=== PATIENT | male | born 1980 | race African-American/Black ===

== ENCOUNTER 2016-10-20 17:43 | Inpatient (IN) | payer OTHER ==
[~2016-10-20] VITALS: Ht 175.3 cm; Wt 91.1 kg
[2016-10-20 17:45] VITALS: BP 139/92; TEMP 98.8; O2SAT 96
--- NOTE | 2016-10-20 18:12 | PD ---
HPI Chief Complaint: ENT Complaint Time Seen by Provider: 18:12 Travel History International Travel<30 days: No Contact w/Intl Traveler<30days: No Traveled to known affect area: No History of Present Illness HPI 36-year-old male with no significant medical history presents to emergency department for evaluation of dizziness, blurred vision, and just not feeling right. Patient states that for the last 2 weeks he has been drinking a lot and urinating a lot. He reports having headaches intermittently. He states over last couple days his vision has "not right." He states he feels blurry at times. He denies any other focal deficits or weakness. He has been nauseous without vomiting intermittently. Denies chest pain or Tightness. No difficulty breathing. States it feels like maybe he is good. Denies any other symptoms at this time. She does smoke tobacco cigarettes, approximately a half pack a day. Denies any illicit drug use. No alcohol consumption. No other symptoms to report. PFSH Past Medical History Medical History: Denies Significant Hx Social History Alcohol Use: No Tobacco Use: Yes Substance Use: No Allergies-Medications (Allergen,Severity, Reaction): Coded Allergies: No Known Allergies (Unverified , 10/20/16) Reported Meds & Prescriptions Reported Meds & Active Scripts Active No Active Prescriptions or Reported Medications Review of Systems Except as stated in HPI: all other systems reviewed are Neg Physical Exam Narrative GENERAL: Well-nourished female patient, in no acute distress SKIN: Warm and dry. HEAD: Atraumatic. Normocephalic. EYES: Pupils equal and round. EOMI. No scleral icterus. No injection or drainage. ENT: No nasal bleeding or discharge. Mucous membranes pink and moist. NECK: Trachea midline. No JVD. CARDIOVASCULAR: Regular rate and rhythm. No murmur appreciated. RESPIRATORY: No accessory muscle use. Clear to auscultation. Breath sounds equal bilaterally. GASTROINTESTINAL: Abdomen soft, non-tender, nondistended. Hepatic and splenic margins not palpable. MUSCULOSKELETAL: No obvious deformities. No clubbing. No cyanosis. No edema. NEUROLOGICAL: Awake and alert. No obvious cranial nerve deficits. Motor grossly within normal limits. Normal speech. PSYCHIATRIC: Appropriate mood and affect; insight and judgment normal. Data Data Last Documented VS Vital Signs Date Time Temp Pulse Resp B/P Pulse Ox O2 Delivery O2 Flow Rate FiO2 10/20/16 18:23 87 18 97 Room Air 10/20/16 18:19 99.2 131/82 Orders Iv Access Insert/Monitor (10/20/16 18:10) Complete Blood Count With Diff (10/20/16 18:10) Basic Metabolic Panel (Bmp) (10/20/16 18:10) Urinalysis - C+S If Indicated (10/20/16 18:10) Sodium Chlor 0.9% 1000 Ml Inj (Ns 1000 M (10/20/16 18:15) Electrocardiogram (10/20/16 19:37) Sodium Chlor 0.9% 1000 Ml Inj (Ns 1000 M (10/20/16 19:37) Dext 5%-Nacl 0.9% 1000 Ml Inj (D5w-Ns 10 (10/20/16 19:37) Insulin Human Regular Inj (Novolin R Inj (10/20/16 19:45) Insulin Regular (Iv Infusion) (Novolin R (10/20/16 19:45) Potassium Chlor 40 Meq Premix (Kcl 40 Me (10/20/16 19:45) Potassium Chlor 20 Meq Premix (Kcl 20 Me (10/20/16 19:45) Potassium Chlor 20 Meq Premix (Kcl 20 Me (10/20/16 19:45) Potassium Chlor 20 Meq Premix (Kcl 20 Me (10/20/16 19:45) Potassium Chlor 20 Meq Premix (Kcl 20 Me (10/20/16 19:45) Potassium Chlor 20 Meq Premix (Kcl 20 Me (10/20/16 19:45) Potassium Chlor 20 Meq Premix (Kcl 20 Me (10/20/16 19:45) Sodium Bicarbonate 8.4% Inj (Sodium Bica (10/20/16 19:45) Sodium Bicarbonate 8.4% Inj (Sodium Bica (10/20/16 19:45) Sodium Phosphate Inj (Sodium Phosphate I (10/20/16 19:45) Potassium Chlor 40 Meq Premix (Kcl 40 Me (10/20/16 19:45) Beta Hydroxybutyrate (Acetone) (10/20/16 19:47) Hemoglobin (Hgb) A1c (10/20/16 19:47) Insulin Human Regular Inj (Novolin R Inj (10/20/16 20:00) Sodium Chlor 0.9% 1000 Ml Inj (Ns 1000 M (10/20/16 20:00) Admit Order (Ed Use Only) (10/20/16 19:50) Labs Laboratory Tests Test 10/20/16 18:40 White Blood Count 10.5 TH/MM3 Red Blood Count 5.38 MIL/MM3 Hemoglobin 14.7 GM/DL Hematocrit 44.5 % Mean Corpuscular Volume 82.7 FL Mean Corpuscular Hemoglobin 27.2 PG Mean Corpuscular Hemoglobin 32.9 % Concent Red Cell Distribution Width 13.5 % Platelet Count 232 TH/MM3 Mean Platelet Volume 11.9 FL Neutrophils (%) (Auto) 73.0 % Lymphocytes (%) (Auto) 19.3 % Monocytes (%) (Auto) 6.4 % Eosinophils (%) (Auto) 0.8 % Basophils (%) (Auto) 0.5 % Neutrophils # (Auto) 7.6 TH/MM3 Lymphocytes # (Auto) 2.0 TH/MM3 Monocytes # (Auto) 0.7 TH/MM3 Eosinophils # (Auto) 0.1 TH/MM3 Basophils # (Auto) 0.1 TH/MM3 CBC Comment DIFF FINAL Differential Comment Urine Color COLORLESS Urine Turbidity CLEAR Urine pH 5.0 Urine Specific [place] 1.030 Urine Protein NEG mg/dL Urine Glucose (UA) 1000 mg/dL Urine Ketones 10 mg/dL Urine Occult Blood NEG Urine Nitrite NEG Urine Bilirubin NEG Urine Urobilinogen LESS THAN 2.0 MG/DL Urine Leukocyte Esterase NEG Urine RBC LESS THAN 1 /hpf Urine WBC 1 /hpf Microscopic Urinalysis Comment CULT NOT INDICATED Sodium Level 124 MEQ/L Potassium Level 4.7 MEQ/L Chloride Level 86 MEQ/L Carbon Dioxide Level 26.3 MEQ/L Anion Gap 12 MEQ/L Blood Urea Nitrogen 24 MG/DL Creatinine 1.78 MG/DL Estimat Glomerular Filtration 43 ML/MIN Rate Random Glucose 856 MG/DL Calcium Level 8.7 MG/DL Magnesium Level 2.3 MG/DL Total Bilirubin 0.4 MG/DL Direct Bilirubin 0.1 MG/DL Indirect Bilirubin 0.3 MG/DL Aspartate Amino Transf 33 U/L (AST/SGOT) Alanine Aminotransferase 47 U/L (ALT/SGPT) Alkaline Phosphatase 233 U/L Total Protein 8.0 GM/DL Albumin 3.6 GM/DL MDM Medical Decision Making Medical Screen Exam Complete: Yes Emergency Medical Condition: Yes Medical Record Reviewed: Yes Differential Diagnosis Electrolyte abnormality versus dehydration versus influenza versus viral syndrome Narrative Course 36 year male presents to emergency department for evaluation. Patient appears overall well and without distress. His vital signs are stable. CBC is without acute concern. Urinalysis is with 1000 glucosuria. BMP is with hyponatremia 124. BUN is elevated 24, creatinine is 1.78. Random glucose is critical value of 856. I discussed the patient my attending physician Dr. Jones, she recommends starting patient on DKA protocol. She is ordered 10 units IV insulin. [facility] for [facility]. I spoke with Dr. Orellana. She requests the pt not be on DKA protocol at this time. These orders are cancelled. Pt is admitted inpatient to hospitalist service Diagnosis Primary Impression: Hyperglycemia without ketosis Additional Impression: Hyponatremia Admitting Information Admitting Physician Requests: Admit Scripts No Active Prescriptions or Reported Meds Condition: Stable Liat Lwa Oct 20, 2016 18:12
[2016-10-20] MEDS ORDERED: SODIUM CHLOR 0.9% 1000 ML INJ 1,000 ML IV ONE ×2 (18:15→20:00)
[2016-10-20 18:19] VITALS: BP 131/82; PULSE 86; RESP 18; TEMP 99.2; O2SAT 97
[2016-10-20 19:00] LABS: AUTOMATED NEUTROPHIL # 7.6 TH/MM3 (1.8-7.7); BASOPHIL # 0.1 TH/MM3 (0-0.2); BASOPHIL % 0.5 % (0.0-2.0); EOSINOPHIL # 0.1 TH/MM3 (0-0.4); EOSINOPHIL % 0.8 % (0.0-4.0); HEMATOCRIT 44.5 % (39.0-51.0); HEMO FLAGS DIFF FINAL; LYMPH % 19.3 % (9.0-44.0); MEAN CELL VOLUME 82.7 FL (80.0-100.0); MEAN CORPUSCULAR HEMOGLOBIN 27.2 PG (27.0-34.0); MEAN CORPUSCULAR HGB CONC 32.9 % (32.0-36.0); MONO % 6.4 % (0.0-8.0); PLATELET COUNT 232 TH/MM3 (150-450); RED BLOOD COUNT 5.38 MIL/MM3 (4.50-5.90); RED CELL DISTRIBUTION WIDTH 13.5 % (11.6-17.2); WHITE BLOOD COUNT 10.5 TH/MM3 (4.0-11.0)
[2016-10-20 19:02] LABS: BLOOD, URINE NEG (NEG); GLUCOSE,URINE 1000 mg/dL (NEG); KETONE, URINE 10 mg/dL (NEG); NITRITE,URINE NEG (NEG); URINE COLOR COLORLESS (YELLW/STRAW)
[2016-10-20 19:04] LABS: COMMENT (UR) CULT NOT INDICATED; CULTURE IF INDICATED CULT NOT INDICATED
[2016-10-20 19:35] LABS: BICARBONATE 26.3 MEQ/L (21.0-32.0)
[2016-10-20 19:36] LABS: POTASSIUM 4.7 MEQ/L (3.5-5.1)
[2016-10-20] MEDS ORDERED: DEXT 5%-NACL 0.9% 1000 ML INJ 1,000 ML IV SCH (19:37)
[2016-10-20] MEDS ORDERED: SODIUM CHLOR 0.9% 1000 ML INJ 1,000 ML IV SCH (19:37)
[2016-10-20] MEDS ORDERED: SODIUM PHOSPHATE INJ 15 MMOL in SODIUM CHLORIDE 0.9% INJ 100 ML IV PRN (19:45)
[2016-10-20] MEDS ORDERED: POTASSIUM CHLOR 20 MEQ PREMIX 100 ML IV PRN ×6 (19:45)
[2016-10-20] MEDS ORDERED: POTASSIUM CHLOR 40 MEQ PREMIX 100 ML IV PRN ×2 (19:45)
[2016-10-20] MEDS ORDERED: SODIUM BICARBONATE 8.4% SOLN 50 MEQ/50 ML VIAL IV PRN ×2 (19:45)
[2016-10-20] MEDS ORDERED: INSULIN HUMAN REGULAR 1,000 UNITS/10 ML VIAL IV PUSH ONE (19:45)
[2016-10-20] MEDS ORDERED: INSULIN REGULAR (IV INFUSION) 100 UNITS in SODIUM CHLORIDE 0.9% INJ 99 ML IV SCH (19:45)
--- NOTE | 2016-10-20 19:58 | HHI.HP ---
[facility] Primary [facility] Physician No Primary Care Physician Admission Diagnosis Hyperglycemia; hyponatremia; new onset diabetes Diagnoses: (1) Diabetes mellitus, new onset Diagnosis: Principal (2) Hyponatremia Diagnosis: Principal (3) CORTNEY (acute kidney injury) Diagnosis: Principal (4) Tobacco abuse Diagnosis: Principal Travel History International Travel<30 Days: No Contact w/Intl Traveler <30 Da: No Traveled to Known Affected Are: No History of Present Illness This is a 36-year-old male with no significant PMH who presented to the ER with generalized weakness, polyuria and polydipsia x2 wks. Denies fever, chills, nausea, vomiting or sick contacts. On arrival, BP 139/92, HR 92, O2 sat 96% on RA, Afebrile. CBC unremarkable. Na 124. Creatine 1.78, no previous labs for comparison. BS 856. S/p IVF and 10u Insulin in ER. Pt w/ no previous history of DM. Review of Systems Other ROS: 14 point review of systems otherwise negative. Past Family Social History Past Medical History PMH: None Past Surgical History PAST SURGICAL HISTORY: None Allergies: Coded Allergies: No Known Allergies (Unverified , 10/20/16) Family History PAST FAMILY HISTORY: Reviewed. No h/o DM or CAD Social History PAST SOCIAL HISTORY: Negative for alcohol or drugs. Smokes 1ppd. Physical Exam Vital Signs Vital Signs Date Time Temp Pulse Resp B/P Pulse Ox O2 Delivery O2 Flow Rate FiO2 10/20/16 18:23 87 18 97 Room Air 10/20/16 18:19 99.2 86 18 131/82 97 10/20/16 17:45 98.8 92 17 139/92 96 Physical Exam PE: GENERAL: Middle-aged male in no acute distress. HEENT: PERRLA, EOMI. No scleral icterus or conjunctival pallor. No lid lag or facial droop. CARDIOVASCULAR: Regular rate and rhythm. No obvious murmurs to auscultation. No chest tenderness to palpation. RESPIRATORY: No obvious rhonchi or wheezing. Clear to auscultation. Breath sounds equal bilaterally. GASTROINTESTINAL: Abdomen soft, non-tender, nondistended. BS normal. MUSCULOSKELETAL: Extremities without clubbing, cyanosis, or edema. No obvious deformities. NEUROLOGICAL: Awake, alert and oriented x4. No focal neurologic deficits. Moving both upper and lower extremities spontaneously. Laboratory Laboratory Tests Test 10/20/16 18:40 White Blood Count 10.5 Red Blood Count 5.38 Hemoglobin 14.7 Hematocrit 44.5 Mean Corpuscular Volume 82.7 Mean Corpuscular Hemoglobin 27.2 Mean Corpuscular Hemoglobin 32.9 Concent Red Cell Distribution Width 13.5 Platelet Count 232 Mean Platelet Volume 11.9 Neutrophils (%) (Auto) 73.0 Lymphocytes (%) (Auto) 19.3 Monocytes (%) (Auto) 6.4 Eosinophils (%) (Auto) 0.8 Basophils (%) (Auto) 0.5 Neutrophils # (Auto) 7.6 Lymphocytes # (Auto) 2.0 Monocytes # (Auto) 0.7 Eosinophils # (Auto) 0.1 Basophils # (Auto) 0.1 CBC Comment DIFF FINAL Differential Comment Urine Color COLORLESS Urine Turbidity CLEAR Urine pH 5.0 Urine Specific [place] 1.030 Urine Protein NEG Urine Glucose (UA) 1000 Urine Ketones 10 Urine Occult Blood NEG Urine Nitrite NEG Urine Bilirubin NEG Urine Urobilinogen LESS THAN 2.0 Urine Leukocyte Esterase NEG Urine RBC LESS THAN 1 Urine WBC 1 Microscopic Urinalysis Comment CULT NOT INDICATED Sodium Level 124 Potassium Level 4.7 Chloride Level 86 Carbon Dioxide Level 26.3 Anion Gap 12 Blood Urea Nitrogen 24 Creatinine 1.78 Estimat Glomerular Filtration 43 Rate Random Glucose 856 Calcium Level 8.7 Result Diagram: 10/20/16183910/20/161839 Assessment and Plan Problem List: (1) Diabetes mellitus, new onset ICD Code: E11.9 Status: Acute (2) Hyponatremia ICD Code: E87.1 Status: Acute (3) CORTNEY (acute kidney injury) ICD Code: N17.9 Status: Acute (4) Tobacco abuse ICD Code: Z72.0 Status: Acute Assessment and Plan A/P: 1. DM: New Onset. Polyuria and polydipsia x2 wks. BS 856. No evidence of acidosis. S/p IVF and 10u Insulin in ER. Continue w/ Sliding scale, aggressive IVF, check Hgb A1c, consult Optics Manufacturing Technician, repeat labs in am. 2. Hyponatremia: Na 124. Secondary to hyperglycemia. Recheck labs. 3. CORTNEY: Creatinine 1.78, no previous labs for comparison. U/a negative. Likely secondary to dehydration from hyperglycemia. IVF, repeat labs in am. 4. Tobacco Abuse: Pt counselled. NicoDerm if needed. 5. DVT Prophylaxis: SCD/Teds. 6. Social work for d/c planning as needed. 7. Case discussed w/ ER physician at length. Physician Certification 2 Midnight Certification Type: Admission for Inpatient Services Order for Inpatient Services The services are ordered in accordance with Medicare regulations or non- Medicare payer requirements, as applicable. In the case of services not specified as inpatient-only, they are appropriately provided as inpatient services in accordance with the 2-midnight benchmark. Estimated LOS (days): 2 days is the estimated time the patient will need to remain in the hospital, assuming treatment plan goals are met and no additional complications. Post-Hospital Plan: Home Blessing Orellana MD Oct 20, 2016 19:58
[2016-10-20] MEDS ORDERED: ONDANSETRON HCL 4 MG/2 ML VIAL IVP PRN (20:00)
[2016-10-20] MEDS ORDERED: ACETAMINOPHEN 325 MG TAB PO PRN (20:00)
[2016-10-20] MEDS ORDERED: BISACODYL 10 MG SUPP PR PRN (20:00)
[2016-10-20] MEDS ORDERED: ACETAMINOPHEN/HYDROcodone 325 MG/5 MG TAB PO PRN (20:00)
[2016-10-20] MEDS ORDERED: INSULIN HUMAN REGULAR 1,000 UNITS/10 ML VIAL IVP ONE (20:00)
[2016-10-20] MEDS ORDERED: MORPHINE SULFATE 4 MG/ML INJ IV PRN (20:00)
[2016-10-20] MEDS ORDERED: SODIUM CHLORIDE 0.9% FLUSH 5 ML FLUSH FLUSH PRN (20:00)
[2016-10-20] MEDS: SODIUM CHLOR 0.9% 1000 ML INJ 1,000 ML IV SCH (20:00)
[2016-10-20 20:20] VITALS: BP 137/75; PULSE 70; RESP 18; O2SAT 98
[2016-10-20] MEDS: SODIUM CHLORIDE 0.9% FLUSH 5 ML FLUSH FLUSH SCH (21:00)
[2016-10-20 21:17] LABS: INDIRECT BILIRUBIN 0.3 MG/DL (0.0-0.8); MAGNESIUM 2.3 MG/DL (1.5-2.5); TOTAL BILIRUBIN ADULT 0.4 MG/DL (0.2-1.0)
[2016-10-20 21:25] LABS: BETA-HYDROXYBUTYRATE 1.18 MMOL/L (0.00-0.39)
[2016-10-20] MEDS ORDERED: DEXTROSE 50% IN WATER 50 ML VIAL(D50) IV PUSH PRN (22:00)
[2016-10-20] MEDS ORDERED: GLUCAGON 1 MG/ML VIAL OTHER PRN (22:00)
[2016-10-20 22:30] VITALS: BP 134/98; PULSE 77; RESP 18; TEMP 97.7; O2SAT 99
[2016-10-21] MEDS ORDERED: INSULIN ASPART 1,000 UNITS/10 ML VIAL SQ ONE (02:45)
[2016-10-21] MEDS ORDERED: Vancomycin Consult Pharmacy 1 EA OTHER SCH (02:45)
[2016-10-21] MEDS ORDERED: CEFEPIME INJ 2,000 MG in SODIUM CHLORIDE 0.9% INJ 100 ML IV SCH (02:45)
[2016-10-21] MEDS: SODIUM CHLOR 0.9% 1000 ML INJ 1,000 ML IV SCH (02:54)
[2016-10-21 04:00] VITALS: BP 137/92; PULSE 71; RESP 16; TEMP 97.1; O2SAT 97
[2016-10-21] MEDS: INSULIN ASPART SUPPLEMENTAL SCALE SQ SCH ×4 (06:07→22:17)
[2016-10-21] MEDS ORDERED: INSULIN ASPART SUPPLEMENTAL SCALE SQ SCH (07:00)
[2016-10-21 07:11] LABS: AUTOMATED NEUTROPHIL # 6.9 TH/MM3 (1.8-7.7); BASOPHIL # 0.1 TH/MM3 (0-0.2); BASOPHIL % 0.6 % (0.0-2.0); EOSINOPHIL # 0.1 TH/MM3 (0-0.4); EOSINOPHIL % 1.3 % (0.0-4.0); HEMATOCRIT 36.1 % (39.0-51.0); HEMO FLAGS DIFF FINAL; LYMPH % 23.1 % (9.0-44.0); LYMPHOCYTE # 2.4 TH/MM3 (1.0-4.8); MEAN CELL VOLUME 79.4 FL (80.0-100.0); MEAN CORPUSCULAR HEMOGLOBIN 27.1 PG (27.0-34.0); MEAN CORPUSCULAR HGB CONC 34.1 % (32.0-36.0); MONO % 9.1 % (0.0-8.0); NEUT % 65.9 % (16.0-70.0); PLATELET COUNT 182 TH/MM3 (150-450); RED BLOOD COUNT 4.54 MIL/MM3 (4.50-5.90); RED CELL DISTRIBUTION WIDTH 13.2 % (11.6-17.2); WHITE BLOOD COUNT 10.4 TH/MM3 (4.0-11.0)
[2016-10-21 07:36] LABS: ALKALINE PHOSPHATASE 170 U/L (45-117); ALT (GPT) 39 U/L (12-78); ANION GAP 9 MEQ/L (5-15); AST (GOT) 25 U/L (15-37); BLOOD UREA NITROGEN 13 MG/DL (7-18); CHLORIDE 107 MEQ/L (98-107); GLOMERULAR FILTRATION RATE 98 ML/MIN (>89); POTASSIUM 3.6 MEQ/L (3.5-5.1); SODIUM (NA) 141 MEQ/L (136-145); TOTAL BILIRUBIN ADULT 0.3 MG/DL (0.2-1.0)
[2016-10-21 08:00] VITALS: BP 132/80; PULSE 81; RESP 16; TEMP 98.1; O2SAT 98
[2016-10-21] MEDS: SODIUM CHLORIDE 0.9% FLUSH 5 ML FLUSH FLUSH SCH ×2 (08:27→22:17)
--- NOTE | 2016-10-21 10:08 | HHI.PR ---
Subjective Remarks Patient seen in follow up for new onset diabetes, hyponatremia and CORTNEY Patient reports that he is feeling much better except for little drowsy. He tolerated breakfast this morning. Objective Vitals Vital Signs Date Time Temp Pulse Resp B/P Pulse Ox O2 Delivery O2 Flow Rate FiO2 10/21/16 08:00 98.1 81 16 132/80 98 10/21/16 04:00 97.1 71 16 137/92 97 10/20/16 22:30 97.7 77 18 134/98 99 10/20/16 20:20 70 18 137/75 98 Room Air 10/20/16 18:23 87 18 97 Room Air 10/20/16 18:19 99.2 86 18 131/82 97 10/20/16 17:45 98.8 92 17 139/92 96 I/O 10/20/16 10/20/16 10/20/16 10/21/16 10/21/16 10/21/16 07:00 15:00 23:00 07:00 15:00 23:00 Intake Total 960 ml Balance 960 ml Intake Oral 960 ml # Voids 1 3 Result Diagram: 10/21/16 0603 10/21/16 0603 Objective Remarks GENERAL: This is a well-nourished, well-developed patient, in no apparent distress. CARDIOVASCULAR: Normal rate and regular rhythm without murmurs, gallops, or rubs. RESPIRATORY: Good respiratory efforts. Breath sounds equal and clear to auscultation bilaterally. GASTROINTESTINAL: Abdomen soft, non-tender, non-distended. Normal active bowel sounds MUSCULOSKELETAL: Extremities without cyanosis, or edema. NEURO: Alert & Oriented x4 to person, place, time, situation. Moves all ext x4 PSYCH: Appropriate mood and affect. A/P Problem List: (1) Diabetes mellitus, new onset ICD Code: E11.9 Status: Acute (2) Hyponatremia ICD Code: E87.1 Status: Acute (3) CORTNEY (acute kidney injury) ICD Code: N17.9 Status: Acute (4) Tobacco abuse ICD Code: Z72.0 Status: Acute Assessment and Plan 36-year-old male with new onset diabetes admitted with marked hyperglycemia. DM: New Onset. Polyuria and polydipsia x2 wks. BS 856 on admission. No evidence of acidosis. check Hgb A1c, consult Ball Shagger - Add Levemir 10 units daily at bedtime - Continue w/ Sliding scale and monitor total insulin requirement. CORTNEY: Creatinine 1.78 on admission, no previous labs for comparison. U/a negative. Likely secondary to dehydration from hyperglycemia. Resolved with IVF.DC IVF Hyponatremia: Na 124 on admission. Secondary to hyperglycemia. Resolved with IVF Tobacco Abuse: Pt counselled. DVT Prophylaxis: SCD/Teds. Discharge Planning Probable DC tomorrow. Edis Hutchins MD Oct 21, 2016 10:08
[2016-10-21 12:00] VITALS: BP 151/83; PULSE 77; RESP 16; TEMP 98.1; O2SAT 99
[2016-10-21] MEDS ORDERED: CAFFEINE PO PRN (14:00)
[2016-10-21] MEDS ORDERED: ACETAMINOPHEN PO PRN (14:00)
[2016-10-21] MEDS: ACETAMIN 325 MG/BUTALBITAL 50 MG/CAFFEINE 40 MG TAB PO PRN (14:50)
[2016-10-21 16:00] VITALS: BP 142/81; PULSE 72; RESP 16; TEMP 97.8; O2SAT 98
[2016-10-21 16:40] LABS: HEMOGLOBIN A1a 1.7 %; HEMOGLOBIN A1b 1.6 %; HEMOGLOBIN Ao 66.7 %; HEMOGLOBIN F 3.1 %; HEMOGLOBIN LA1C 5.3 %; HEMOGLOBIN P3 7.9 %
--- NOTE | 2016-10-21 19:29 | EKG ---
Date Performed: 10/20/2016 Time Performed: 21:25:06 PTAGE: 36 years EKG: Sinus rhythm NONSPECIFIC ST & T-WAVE ABNORMALITY BORDERLINE ECG NO PREVIOUS TRACING DOCTOR: Jimmy Renteria Interpretating Date/Time 10/21/2016 19:25:51
[2016-10-21 20:00] VITALS: BP 137/79; PULSE 79; RESP 18; TEMP 97.3; O2SAT 98
[2016-10-21] MEDS: INSULIN DETEMIR 100 UNITS/ML VIAL SQ SCH (22:17)
[2016-10-22] VITALS: BP 146/88; PULSE 75; RESP 16; TEMP 97.6; O2SAT 98
[2016-10-22 04:00] VITALS: BP 149/99; PULSE 82; RESP 18; TEMP 96.2; O2SAT 99
[2016-10-22] MEDS: INSULIN ASPART SUPPLEMENTAL SCALE SQ SCH ×4 (06:12→21:27)
[2016-10-22 07:31] LABS: POTASSIUM 3.4 MEQ/L (3.5-5.1)
[2016-10-22 08:00] VITALS: BP 129/84; PULSE 79; RESP 16; TEMP 98; O2SAT 100
[2016-10-22] MEDS: ACETAMIN 325 MG/BUTALBITAL 50 MG/CAFFEINE 40 MG TAB PO PRN (08:02)
[2016-10-22] MEDS: SODIUM CHLORIDE 0.9% FLUSH 5 ML FLUSH FLUSH SCH ×2 (08:02→21:27)
[2016-10-22] MEDS ORDERED: INSU1MIS15 (11:10)
[2016-10-22] MEDS ORDERED: LEVEMIR SQ (11:10)
[2016-10-22] MEDS ORDERED: METF850T PO (11:10)
[2016-10-22] MEDS ORDERED: LANCETS1 MI1 (11:10)
[2016-10-22] MEDS ORDERED: GLUCKIT15 (11:10)
[2016-10-22] MEDS ORDERED: NOVORP2 SQ (11:10)
--- NOTE | 2016-10-22 11:13 | HHI.DS ---
Discharge Summary Admission Date Oct 20, 2016 at 19:52 Discharge Date: Oct 22, 2016 Admitting Diagnosis Hyperglycemia; hyponatremia; new onset diabetes (1) Diabetes mellitus, new onset ICD Code: E11.9 (2) Hyponatremia ICD Code: E87.1 (3) CORTNEY (acute kidney injury) ICD Code: N17.9 (4) Tobacco abuse ICD Code: Z72.0 Procedures None Brief History - From Admission This is a 36-year-old male with no significant PMH who presented to the ER with generalized weakness, polyuria and polydipsia x2 wks. Denies fever, chills, nausea, vomiting or sick contacts. On arrival, BP 139/92, HR 92, O2 sat 96% on RA, Afebrile. CBC unremarkable. Na 124. Creatine 1.78, no previous labs for comparison. BS 856. S/p IVF and 10u Insulin in ER. Pt w/ no previous history of DM. CBC/BMP: 10/21/16 0603 10/22/16 0530 Significant Findings Laboratory Tests Test 10/20/16 10/20/16 10/21/16 10/22/16 18:40 20:10 06:03 05:30 Mean Platelet Volume 11.9 FL 11.3 FL (7.0-11.0) (7.0-11.0) Neutrophils (%) (Auto) 73.0 % (16.0-70.0) Urine Glucose (UA) 1000 mg/dL (NEG) Urine Ketones 10 mg/dL (NEG) Sodium Level 124 MEQ/L (136-145) Chloride Level 86 MEQ/L (98-107) Blood Urea Nitrogen 24 MG/DL (7-18) Creatinine 1.78 MG/DL (0.60-1.30) Estimat Glomerular Filtration 43 ML/MIN (>89) Rate Random Glucose 856 MG/DL 265 MG/DL 209 MG/DL (74-106) (74-106) (74-106) Alkaline Phosphatase 233 U/L 170 U/L (45-117) (45-117) Hemoglobin A1c 13.7 % (4.3-6.0) B-Hydroxybutyrate 1.18 MMOL/L (0.00-0.39) Hemoglobin 12.3 GM/DL (13.0-17.0) Hematocrit 36.1 % (39.0-51.0) Mean Corpuscular Volume 79.4 FL (80.0-100.0) Monocytes (%) (Auto) 9.1 % (0.0-8.0) Calcium Level 8.0 MG/DL 8.1 MG/DL (8.5-10.1) (8.5-10.1) Total Protein 6.2 GM/DL (6.4-8.2) Albumin 2.8 GM/DL (3.4-5.0) Potassium Level 3.4 MEQ/L (3.5-5.1) PE at Discharge GENERAL: This is a well-nourished, well-developed patient, in no apparent distress. CARDIOVASCULAR: Normal rate and regular rhythm without murmurs, gallops, or rubs. RESPIRATORY: Good respiratory efforts. Breath sounds equal and clear to auscultation bilaterally. GASTROINTESTINAL: Abdomen soft, non-tender, non-distended. Normal active bowel sounds MUSCULOSKELETAL: Extremities without cyanosis, or edema. NEURO: Alert & Oriented x4 to person, place, time, situation. Moves all ext x4 PSYCH: Appropriate mood and affect. Pt update on day of discharge Patient reports that he is feeling much better. We discussed discharge planning at length and the need for follow-up. He was counseled extensively on management of his diabetes. Hospital Course 36-year-old male with new onset diabetes admitted with marked hyperglycemia. Evaluation and treatment course detailed below: DM: New Onset. Polyuria and polydipsia x2 wks. BS 856 on admission. No evidence of acidosis. Hemoglobin A1c of 13. The patient was treated with IV insulin with improvement in his blood glucose. Based on these requirement in the hospital, he is discharged on Levemir 12 units twice a day and a sliding scale. He was seen by the simulation educator. The patient was counseled on the need to follow up outpatient with her primary care physician. He is advised to keep a log of his blood sugar for his follow-up appointment. The patient was extensively counseled on the day of discharge regarding diabetes management. CORTNEY: Creatinine 1.78 on admission, no previous labs for comparison. U/a negative. Likely secondary to dehydration from hyperglycemia. Resolved with IVF.DC IVF Hyponatremia: Na 124 on admission. Secondary to hyperglycemia. Resolved with IVF Tobacco Abuse: Pt counselled. Pt Condition on Discharge: Good Discharge Disposition: Discharge Home Discharge Time: <= 30 minutes Discharge Instructions DIET: Follow Instructions for: Diabetic Diet Activities you can perform: Regular-No Restrictions Follow up Referrals: PCP Follow-up - 3-5 Days New Medications: Blood Glucose Monitoring W/Device (Glucocom Blood Glucose Mo W/Device) 1 Kit Kit 1 KIT .ROUTE DIRECTED Check blood glucose AC/HS Blood Sugar Management #1 KIT Insulin Detemir Inj (Levemir Inj) 1,000 unit/ 10 ML Vial 12 UNITS SQ BID Do not mix with any other Insulin. Blood Sugar Management #1 Ref 0 VIAL Insulin Human Regular Inj (Novolin R Inj) 1,000 Unit/10 Ml Vial 1-9 UNITS SQ ACHS If sugars less than 70,(0) units; sugars 150-199,(1)unit; sugars 200-249,(3)units; sugars 250-299,(5) units;sugars 300-349,(7)units; sugars greater than 349,(9)units Blood Sugar Management #10 Ref 0 ML Insulin Syringe/U-100/31G X 5/16" 1 ml (Insulin Syringe/U-100/31G X 5/16" 1 ml) 1 Mis Mis 1 EA .ROUTE DIRECTED Blood Sugar Management #1 Ref 0 BOX Lancets (Lancets) 1 Mis Mis 1 EA .ROUTE DIRECTED Blood Sugar Management #1 Ref 0 BOX Metformin (Metformin) 850 Mg Tab 850 MG PO BIDPC With meals Blood Sugar Management #60 Ref 0 TAB Edis Hutchins MD Oct 22, 2016 11:13
--- NOTE | 2016-10-22 11:35 | PD.PN.STU ---
Subjective Remarks 36 yo M w/ new onset diabetes. He reports his vision is improving by the minute , less blurry, is able to see TV now. He has some residual headache, and is eager to go home. Objective Vitals Vital Signs Date Time Temp Pulse Resp B/P Pulse Ox O2 Delivery O2 Flow Rate FiO2 10/22/16 04:00 96.2 82 18 149/99 99 10/22/16 00:00 97.6 75 16 146/88 98 10/21/16 20:00 97.3 79 18 137/79 98 10/21/16 16:00 97.8 72 16 142/81 98 10/21/16 12:00 98.1 77 16 151/83 99 I/O 10/21/16 10/21/16 10/21/16 10/22/16 10/22/16 10/22/16 07:00 15:00 23:00 07:00 15:00 23:00 Intake Total 960 ml 1393 ml 480 ml 240 ml Balance 960 ml 1393 ml 480 ml 240 ml Intake Oral 960 ml 560 ml 480 ml 240 ml IV Total 833 ml # Voids 3 3 2 1 Result Diagram: 10/21/16 0603 10/22/16 0530 Other Results Laboratory Tests Test 10/20/16 10/20/16 10/21/16 10/22/16 18:40 20:10 06:03 05:30 White Blood Count 10.5 TH/MM3 10.4 TH/MM3 Red Blood Count 5.38 MIL/MM3 4.54 MIL/MM3 Hemoglobin 14.7 GM/DL 12.3 GM/DL Hematocrit 44.5 % 36.1 % Mean Corpuscular Volume 82.7 FL 79.4 FL Mean Corpuscular Hemoglobin 27.2 PG 27.1 PG Mean Corpuscular Hemoglobin 32.9 % 34.1 % Concent Red Cell Distribution Width 13.5 % 13.2 % Platelet Count 232 TH/MM3 182 TH/MM3 Mean Platelet Volume 11.9 FL 11.3 FL Neutrophils (%) (Auto) 73.0 % 65.9 % Lymphocytes (%) (Auto) 19.3 % 23.1 % Monocytes (%) (Auto) 6.4 % 9.1 % Eosinophils (%) (Auto) 0.8 % 1.3 % Basophils (%) (Auto) 0.5 % 0.6 % Neutrophils # (Auto) 7.6 TH/MM3 6.9 TH/MM3 Lymphocytes # (Auto) 2.0 TH/MM3 2.4 TH/MM3 Monocytes # (Auto) 0.7 TH/MM3 0.9 TH/MM3 Eosinophils # (Auto) 0.1 TH/MM3 0.1 TH/MM3 Basophils # (Auto) 0.1 TH/MM3 0.1 TH/MM3 CBC Comment DIFF FINAL DIFF FINAL Differential Comment Urine Color COLORLESS Urine Turbidity CLEAR Urine pH 5.0 Urine Specific [place] 1.030 Urine Protein NEG mg/dL Urine Glucose (UA) 1000 mg/dL Urine Ketones 10 mg/dL Urine Occult Blood NEG Urine Nitrite NEG Urine Bilirubin NEG Urine Urobilinogen LESS THAN 2.0 MG/DL Urine Leukocyte Esterase NEG Urine RBC LESS THAN 1 /hpf Urine WBC 1 /hpf Microscopic Urinalysis Comment CULT NOT INDICATED Sodium Level 124 MEQ/L 141 MEQ/L 141 MEQ/L Potassium Level 4.7 MEQ/L 3.6 MEQ/L 3.4 MEQ/L Chloride Level 86 MEQ/L 107 MEQ/L 104 MEQ/L Carbon Dioxide Level 26.3 MEQ/L 25.0 MEQ/L 27.0 MEQ/L Anion Gap 12 MEQ/L 9 MEQ/L 10 MEQ/L Blood Urea Nitrogen 24 MG/DL 13 MG/DL 8 MG/DL Creatinine 1.78 MG/DL 1.04 MG/DL 0.91 MG/DL Estimat Glomerular Filtration 43 ML/MIN 98 ML/MIN 114 ML/MIN Rate Random Glucose 856 MG/DL 265 MG/DL 209 MG/DL Calcium Level 8.7 MG/DL 8.0 MG/DL 8.1 MG/DL Magnesium Level 2.3 MG/DL Total Bilirubin 0.4 MG/DL 0.3 MG/DL Direct Bilirubin 0.1 MG/DL Indirect Bilirubin 0.3 MG/DL Aspartate Amino Transf 33 U/L 25 U/L (AST/SGOT) Alanine Aminotransferase 47 U/L 39 U/L (ALT/SGPT) Alkaline Phosphatase 233 U/L 170 U/L Total Protein 8.0 GM/DL 6.2 GM/DL Albumin 3.6 GM/DL 2.8 GM/DL Hemoglobin A1c 13.7 % B-Hydroxybutyrate 1.18 MMOL/L Objective Remarks GENERAL: Sitting upright in bed, comfortable, conversant SKIN: Warm and dry. HEAD: Normocephalic. EYES: No scleral icterus. No injection or drainage. CARDIOVASCULAR: Regular rate and rhythm without murmurs, gallops, or rubs. RESPIRATORY: Breath sounds equal bilaterally. No accessory muscle use. GASTROINTESTINAL: Abdomen soft, non-tender, nondistended. MUSCULOSKELETAL: No cyanosis, or edema. BACK: Nontender without obvious deformity. Medications and IVs Administered Medications Medications (Trade) Dose Ordered Sig/Hayley Route PRN Reason Start Time Stop Time Status Last Admin Dose Admin IV Flush (NS Flush) 2 ml BID FLUSH 10/20/16 21:00 10/22/16 08:02 Acetaminophen/ Hydrocodone Bitart ([place] 5-325 Mg) 1 tab Q4H PRN PO PAIN SCALE 3 TO 5 10/20/16 20:00 10/21/16 08:21 Insulin Detemir (Levemir Inj) 10 units HS SQ 10/21/16 21:00 10/21/16 22:17 Acetaminophen/ Butalbital/ Caffeine (Fioricet 325-50-40) 1 tab Q6H PRN PO HEADACHE 10/21/16 14:30 10/22/16 08:02 A/P Assessment and Plan 36 yo M w/new onset diabetes - Diabetes: new onset - Found to have BS of 856 in ED, HbA1C 13.7% - Has required 32 units of insulin in last 24h - Ready to go home, needs diabetic education and PCP to follow closely on outpatient setting - Dehydration/CORTNEY: Resolved - Initial Cr 1.78 now 0.91 - Hyponatremia: Resolved - Resolved with IVF resuscitation Sima Griffiths M3 Oct 22, 2016 11:34
[2016-10-22 12:45] VITALS: BP 146/85; PULSE 72; RESP 16; TEMP 98.1; O2SAT 100
[2016-10-22 16:00] VITALS: BP 131/83; PULSE 67; RESP 16; TEMP 97.5; O2SAT 100
[2016-10-22] MEDS ORDERED: NOVO7030P2 SQ (16:34)
[2016-10-22 20:00] VITALS: BP 142/85; PULSE 64; RESP 18; TEMP 98.6; O2SAT 98
[2016-10-22] MEDS: INSULIN DETEMIR 100 UNITS/ML VIAL SQ SCH (21:07)
[2016-10-23] VITALS: BP 132/80; PULSE 73; RESP 18; TEMP 97.7; O2SAT 98
[2016-10-23] MEDS: ACETAMIN 325 MG/BUTALBITAL 50 MG/CAFFEINE 40 MG TAB PO PRN (02:05)
[2016-10-23 04:00] VITALS: BP 139/72; PULSE 72; RESP 18; TEMP 97.1; O2SAT 65
[2016-10-23] MEDS: INSULIN ASPART SUPPLEMENTAL SCALE SQ SCH ×3 (04:57→17:32)
--- NOTE | 2016-10-23 08:48 | HHI.PR ---
Subjective Remarks Patient DC yesterday but could not go because outpatient insulin and supplies not covered by his insurance and his Blood glucose as high as 400. Patient has no new complaints. Would like to go home. Objective Vitals Vital Signs Date Time Temp Pulse Resp B/P Pulse Ox O2 Delivery O2 Flow Rate FiO2 10/23/16 04:00 97.1 72 18 139/72 65 10/23/16 00:00 97.7 73 18 132/80 98 10/22/16 20:00 98.6 64 18 142/85 98 10/22/16 16:00 97.5 67 16 131/83 100 10/22/16 12:45 98.1 72 16 146/85 100 I/O 10/22/16 10/22/16 10/22/16 10/23/16 10/23/16 10/23/16 07:00 15:00 23:00 07:00 15:00 23:00 Intake Total 240 ml 680 ml 600 ml 480 ml Balance 240 ml 680 ml 600 ml 480 ml Intake Oral 240 ml 680 ml 600 ml 480 ml # Voids 1 3 2 1 Result Diagram: 10/21/16 0603 10/22/16 0530 Objective Remarks GENERAL: This is a well-nourished, well-developed patient, in no apparent distress. CARDIOVASCULAR: Normal rate and regular rhythm without murmurs, gallops, or rubs. RESPIRATORY: Good respiratory efforts. Breath sounds equal and clear to auscultation bilaterally. GASTROINTESTINAL: Abdomen soft, non-tender, non-distended. Normal active bowel sounds MUSCULOSKELETAL: Extremities without cyanosis, or edema. NEURO: Alert & Oriented x4 to person, place, time, situation. Moves all ext x4 PSYCH: Appropriate mood and affect. Procedures None A/P Problem List: (1) Diabetes mellitus, new onset ICD Code: E11.9 Status: Acute (2) Hyponatremia ICD Code: E87.1 Status: Acute (3) CORTNEY (acute kidney injury) ICD Code: N17.9 Status: Acute (4) Tobacco abuse ICD Code: Z72.0 Status: Acute Assessment and Plan 36-year-old male with new onset diabetes admitted with marked hyperglycemia. DM: New Onset. Polyuria and polydipsia x2 wks. BS 856 on admission. No evidence of acidosis. check Hgb A1c, consult Regional Tele[employer] Specialist - Change Levemir to 15 units BID. - Continue w/ Sliding scale. CORTNEY: Creatinine 1.78 on admission, no previous labs for comparison. U/a negative. Likely secondary to dehydration from hyperglycemia. Resolved with IVF.DC IVF Hyponatremia: Na 124 on admission. Secondary to hyperglycemia. Resolved with IVF Tobacco Abuse: Pt counselled. DVT Prophylaxis: SCD/Teds. Discharge Planning Case management following. DC once arrangements for outpatient meds are made. Edis Hutchins MD Oct 23, 2016 08:48
[2016-10-23] MEDS ORDERED: INSULIN DETEMIR 100 UNITS/ML VIAL SQ SCH (09:00)
[2016-10-23] MEDS: SODIUM CHLORIDE 0.9% FLUSH 5 ML FLUSH FLUSH SCH (10:07)
[2016-10-23 11:50] VITALS: BP 129/88; PULSE 74; RESP 20; TEMP 98.2; O2SAT 97
[2016-10-23 15:00] VITALS: BP 137/95; PULSE 78; RESP 20; TEMP 97.6; O2SAT 99
== END 2016-10-23 18:05 | disposition home or self-care (01) | DRG 638 ==
LOC: NEPC 17:43 → NEDA 19:52 → HOCA 22:24
PROVIDERS: ADMIT Hospitalist; ATTEND Hospitalist
DX: E11.65 Type 2 diabetes mellitus with hyperglycemia (principal); N17.9 Acute kidney failure, unspecified; E87.1 Hypo-osmolality and hyponatremia; F17.200 Nicotine dependence, unspecified, uncomplicated; E86.0 Dehydration
CPT/HCPCS: 80048; 80053; 80076; 81001; 82010; 82948; 83036; 83735; 85025; 93005; 96360; J1815; J7030

== ENCOUNTER 2016-11-01 11:25 | Emergency (ER) | payer OTHER ==
[~2016-11-01] VITALS: Ht 175.3 cm; Wt 90.0 kg
[~2016-11-01 11:25] MED LIST: GLUCKIT15; INSU1MIS15; LANCETS1 MI1; METF850T PO; NOVO7030P2 SQ; NOVORP2 SQ
[2016-11-01 11:27] VITALS: BP 162/98; PULSE 92; RESP 15; TEMP 98.2; O2SAT 98
--- NOTE | 2016-11-01 12:09 | PD ---
HPI Chief Complaint: Eye Problems/Injury Time Seen by Provider: 12:02 Travel History International Travel<30 days: No Contact w/Intl Traveler<30days: No Traveled to known affect area: No History of Present Illness HPI 36-year-old male presents to the emergency department for evaluation of blurry vision. Patient was seen on October 20, 2016 for blurry vision and not feeling right. He was found to have elevated blood glucose of 856 with a sodium of 124. However, he was not in DKA. He was discharged with a prescription for metformin and 70/30 insulin. He states that he has taken his as prescribed. He checked his blood sugar before coming to the hospital was 117. He states his blurry vision had improved upon discharge from the hospital. However, on Friday, he states his blurry vision worsened. Patient states it is in his bilateral eyes. He denies any pain. No trauma to the eyes. He denies any black curtains or seeing spots. He has no other medical problems and takes no other medications. He states other blurry vision, he feels fine. PFSH Past Medical History Cardiovascular Problems: No Diabetes: Yes (new onset DM ) Endocrine: Yes Genitourinary: No Immune Disorder: No Musculoskeletal: No Neurologic: No Psychiatric: No Reproductive: No Respiratory: No Social History Alcohol Use: No Tobacco Use: Yes Substance Use: No Allergies-Medications (Allergen,Severity, Reaction): Coded Allergies: No Known Allergies (Unverified , 11/01/16) Reported Meds & Prescriptions Reported Meds & Active Scripts Active Novolin 70-30 Inj (Insulin Human Isoph/Insulin Regular) 1,000 Unit/10 Ml Vial 12 Units SQ BID Lancets 1 Mis Mis 1 Ea .ROUTE DIRECTED Insulin Syringe/U-100/31G X 5/16" 1 ml 1 Mis Mis 1 Ea .ROUTE DIRECTED Glucocom Blood Glucose Mo W/Device (Device) 1 Kit Kit 1 Kit .ROUTE DIRECTED Check blood glucose AC/HS Novolin R Inj (Insulin Human Regular) 1,000 Unit/10 Ml Vial 1-9 Units SQ ACHS If sugars less than 70,(0) units; sugars 150-199,(1)unit; sugars 200-249,(3)units; sugars 250-299,(5) units;sugars 300-349,(7)units; sugars greater than 349,(9)units Metformin (Metformin HCl) 850 Mg Tab 850 Mg PO BIDPC With meals Review of Systems Except as stated in HPI: all other systems reviewed are Neg Physical Exam Narrative GENERAL: Well-developed well-nourished male patient, ambulatory. Afebrile. SKIN: Warm and dry. HEAD: Normocephalic. Atraumatic. EYES: No scleral icterus. No injection or drainage. PERRLA. EOM intact. No photophobia. NECK: Supple, trachea midline. No JVD or lymphadenopathy. CARDIOVASCULAR: Regular rate and rhythm without murmurs, gallops, or rubs. RESPIRATORY: Breath sounds equal bilaterally. No accessory muscle use. Lungs sounds are clear to auscultation. GASTROINTESTINAL: Abdomen soft, non-tender, nondistended. MUSCULOSKELETAL: No cyanosis, or edema. BACK: Nontender without obvious deformity. No CVA tenderness. Data Data Last Documented VS Vital Signs Date Time Temp Pulse Resp B/P Pulse Ox O2 Delivery O2 Flow Rate FiO2 11/01/16 12:13 89 18 11/01/16 11:27 98.2 162/98 98 Orders Blood Glucose (11/01/16 11:56) [facility] Medical Decision Making Medical Screen Exam Complete: Yes Emergency Medical Condition: Yes Medical Record Reviewed: Yes Differential Diagnosis Diabetic retinopathy versus hyperglycemia versus other Narrative Course 36 year old male presents to the emergency department for evaluation of blurry vision. He was recently diagnosed with type 2 diabetes. He denies any other complaints other than blurry vision bilaterally. Visual acuity is 20/70 bilaterally. Blood glucose is 133. Patient is well physical exam. He denies any other symptoms or complaints at this time. Symptoms and physical are consistent with diabetic retinopathy. I discussed the case with my attending physician, Dr. Michael, who agrees with my findings. I instructed him to follow- up with an beauty advisor. He verbalizes understanding and agreement. He is to return for any acute worsening of symptoms. Diagnosis Primary Impression: Diabetic retinopathy associated with type 2 diabetes mellitus Qualified Code: E11.319 - Diabetic retinopathy of both eyes associated with type 2 diabetes mellitus, macular edema presence unspecified, unspecified retinopathy severity Referrals: Cristina Monroy MD call for appointment Patient Instructions: Diabetic Retinopathy (ED), General Instructions Additional Instructions: Follow-up with an beauty advisor. Return to the emergency department for any acute worsening of symptoms. Med/Other Pt SpecificInfo: No Change to Meds Disposition: 01 DISCHARGE HOME Condition: Stable Norma Villafuerte Nov 01, 2016 12:09
--- NOTE | 2016-11-01 13:21 | PD ---
Physical Exam Date Seen by Provider: Nov 01, 2016 Narrative This is a newly diagnosed diabetic who presents with blurred vision Data Data Last Documented VS Vital Signs Date Time Temp Pulse Resp B/P Pulse Ox O2 Delivery O2 Flow Rate FiO2 11/01/16 12:13 89 18 11/01/16 11:27 98.2 162/98 98 Orders Blood Glucose (11/01/16 11:56) MDM Supervised Visit with EMMY: Yes Narrative Course I, Dr. Michael, have reviewed the advance practice practitioner's documentation and am in agreement, met with the patient face to face, made the diagnosis, and the medical decision making was done by me. *My assessment and Findings: I agree with the nurse practitioners evaluation and treatment of the patient. Treatment plan was discussed with the CABLE OPERATOR. Diagnosis Primary Impression: Diabetic retinopathy associated with type 2 diabetes mellitus Qualified Code: E11.319 - Diabetic retinopathy of both eyes associated with type 2 diabetes mellitus, macular edema presence unspecified, unspecified retinopathy severity Referrals: Cristina Monroy MD call for appointment Patient Instructions: General Instructions, Diabetic Retinopathy (ED) Departure Forms: Tests/Procedures Additional Instruction: Follow-up with an toxics program officer. Return to the emergency department for any acute worsening of symptoms. Disposition: 01 DISCHARGE HOME Condition: Stable Vinita Michael MD Nov 01, 2016 13:21
== END 2016-11-01 13:21 | disposition home or self-care (01) ==
LOC: NEPA 11:25
DX: E11.319 Type 2 diabetes mellitus with unspecified diabetic retinopathy without macular edema (principal); R73.9 Hyperglycemia, unspecified; Z72.0 Tobacco use
CPT/HCPCS: 99284

== ENCOUNTER 2017-04-04 09:34 | Emergency (ER) | payer OTHER ==
[~2017-04-04] VITALS: Ht 180.3 cm; Wt 90.0 kg
[2017-04-04 09:36] VITALS: BP 175/114; PULSE 71; RESP 16; TEMP 97.9; O2SAT 94
--- NOTE | 2017-04-04 09:46 | PD ---
HPI Chief Complaint: Headache Time Seen by Provider: 09:46 Travel History International Travel<30 days: No Contact w/Intl Traveler<30days: No Traveled to known affect area: No History of Present Illness HPI 36-year-old Afro-[place] male presents to the emergency Department with history of almost daily headaches for the past year. Patient states this morning he woke up with the worst headache of his life. He states his pain is 10 over 10. He states normally takes Excedrin with relief. Patient denies significant specific neurological deficits at this time. He states his pain is global in its distribution in the head. He denies recent fever, chills, nausea , vomiting, or sinus congestion or dental pain. Patient states he took 2 Excedrin this morning which helped very little. He denies photophobia. Patient states he does smoke cigarettes and had a little bit to drink last night but nothing excessive. He denies other drug use. He has no known drug allergies. PFSH Past Medical History Cardiovascular Problems: No Diabetes: Yes (new onset DM ) Endocrine: Yes Gastrointestinal Disorders: No Genitourinary: No Immune Disorder: No Musculoskeletal: No Neurologic: No Psychiatric: No Reproductive: No Respiratory: No Past Surgical History Other Surgery: No Social History Alcohol Use: Yes (occasion) Tobacco Use: Yes (0.5ppd) Substance Use: No Allergies-Medications (Allergen,Severity, Reaction): Coded Allergies: No Known Allergies (Unverified , 11/01/16) Reported Meds & Prescriptions Reported Meds & Active Scripts Active No Active Prescriptions or Reported Medications Review of Systems Except as stated in HPI: all other systems reviewed are Neg General / Constitutional: No: Fever, Chills Eyes: No: Diploplia, Blurred Vision, Photophobia, Drainage, Redness, Pain, Tearing, Blind Spots, Visual changes, Blindness HENT: Positive: Headaches, No: Vertigo, Lightheadedness, Sore Throat, Rhinitis , Rhinorrhea, Congestion, Nosebleed, Neck Stiffness, Neck Pain, Dental Difficulties, Ear Discharge, Earache Cardiovascular: No: Chest Pain or Discomfort Respiratory: No: Shortness of Breath Gastrointestinal: No: Nausea, Vomiting, Abdominal Pain Genitourinary: No: Dysuria Musculoskeletal: No: Pain Skin: No Rash Neurologic: No: Weakness Psychiatric: No: Depression Endocrine: No: Polydipsia Hematologic/Lymphatic: No: Easy Bruising Physical Exam Narrative GENERAL: Patient appears in mild to moderate distress. SKIN: Warm and dry. Normal color. Normal turgor. HEAD: Atraumatic. Normocephalic. Nontender with palpation or percussion. EYES: Pupils equal and round. No scleral icterus. No injection or drainage. No obvious findings on ophthalmoscopic exam. No significant photophobia. ENT: No nasal bleeding or discharge. No sinus tenderness. Mucous membranes pink and moist. Posterior pharynx appears unremarkable. NECK: Trachea midline. No bony tenderness or step-off. Neck is supple. CARDIOVASCULAR: Regular rate and rhythm. RESPIRATORY: No accessory muscle use. Clear to auscultation. Breath sounds equal bilaterally. GASTROINTESTINAL: Abdomen soft, non-tender, nondistended. Hepatic and splenic margins not palpable. MUSCULOSKELETAL: Extremities without clubbing, cyanosis, or edema. No obvious deformities. NEUROLOGICAL: Awake and alert. No obvious cranial nerve deficits. Motor grossly within normal limits. Five out of 5 muscle strength in the arms and legs. Normal speech. PSYCHIATRIC: Appropriate mood and affect; insight and judgment normal. Data Data Last Documented VS Vital Signs Date Time Temp Pulse Resp B/P Pulse Ox O2 Delivery O2 Flow Rate FiO2 04/04/17 10:20 15 04/04/17 09:36 97.9 71 175/114 94 Orders Complete Blood Count With Diff (04/04/17 09:51) Comprehensive Metabolic Panel (04/04/17 09:51) Prothrombin Time / Inr (Pt) (04/04/17 09:51) Act Partial Throm Time (Ptt) (04/04/17 09:51) Ct Brain W/O Iv Contrast(Rout) (04/04/17 09:51) Ecg Monitoring (04/04/17 09:51) Iv Access Insert/Monitor (04/04/17 09:51) Oximetry (04/04/17 09:51) Sodium Chloride 0.9% Flush (Ns Flush) (04/04/17 10:00) Prochlorperazine Inj (Compazine Inj) (04/04/17 10:00) Diphenhydramine Inj (Benadryl Inj) (04/04/17 10:00) Sodium Chlor 0.9% 1000 Ml Inj (Ns 1000 M (04/04/17 09:51) Morphine Inj (Morphine Inj) (04/04/17 10:00) Labs Laboratory Tests Test 04/04/17 10:20 White Blood Count 7.9 TH/MM3 Red Blood Count 5.31 MIL/MM3 Hemoglobin 14.2 GM/DL Hematocrit 43.0 % Mean Corpuscular Volume 81.0 FL Mean Corpuscular Hemoglobin 26.8 PG Mean Corpuscular Hemoglobin 33.0 % Concent Red Cell Distribution Width 14.9 % Platelet Count 240 TH/MM3 Mean Platelet Volume 9.6 FL Neutrophils (%) (Auto) 58.8 % Lymphocytes (%) (Auto) 31.3 % Monocytes (%) (Auto) 7.9 % Eosinophils (%) (Auto) 1.1 % Basophils (%) (Auto) 0.9 % Neutrophils # (Auto) 4.6 TH/MM3 Lymphocytes # (Auto) 2.5 TH/MM3 Monocytes # (Auto) 0.6 TH/MM3 Eosinophils # (Auto) 0.1 TH/MM3 Basophils # (Auto) 0.1 TH/MM3 CBC Comment DIFF FINAL Differential Comment Prothrombin Time 10.6 SEC Prothromb Time International 1.0 RATIO Ratio Activated Partial 26.6 SEC Thromboplast Time Sodium Level 144 MEQ/L Potassium Level 3.5 MEQ/L Chloride Level 107 MEQ/L Carbon Dioxide Level 29.1 MEQ/L Anion Gap 8 MEQ/L Blood Urea Nitrogen 10 MG/DL Creatinine 1.09 MG/DL Estimat Glomerular Filtration 93 ML/MIN Rate Random Glucose 139 MG/DL Calcium Level 8.3 MG/DL Total Bilirubin 0.2 MG/DL Aspartate Amino Transf 17 U/L (AST/SGOT) Alanine Aminotransferase 24 U/L (ALT/SGPT) Alkaline Phosphatase 109 U/L Total Protein 7.6 GM/DL Albumin 3.7 GM/DL [facility] Medical Decision Making Medical Screen Exam Complete: Yes Emergency Medical Condition: Yes Differential Diagnosis Cephalgia. Intracranial bleed. Tumor. Sinusitis. Narrative Course Patient appears medically stable at time of exam. CT of the head is ordered. IV access is obtained and labs were checked including CBC, CMP, PT PTT and INR. Patient is given 2 mg morphine IV as well as 5 mg promethazine IV, and 25 mg diphenhydramine IV. Patient is given 1000 mL's normal saline bolus. CT is negative for acute process per radiologist. All labs are within normal limits. Patiently treated for headache with ibuprofen 600 mg 4 times a day #40. Patient also given acetaminophen 500 mg 2 tabs every 6 hours when necessary #60. Patient should follow local primary care physician or Dr. Claros of the neurologist on-call for his chronic headaches. Work note was given for today. Diagnosis Primary Impression: Headache Qualified Code: R51 - Nonintractable episodic headache, unspecified headache type Referrals: Deepak Salinas MD call for appointment [facility] Primary Care Physician Patient Instructions: Acute Headache (ED), General Instructions Departure Forms: Work Release Enter return to work date: Apr 05, 2017 Additional Instructions: CT is negative for acute process per radiologist. All labs are within normal limits. Patiently treated for headache with ibuprofen 600 mg 4 times a day #40. Patient also given acetaminophen 500 mg 2 tabs every 6 hours when necessary #60. Patient should follow local primary care physician or Dr. Claros of the neurologist on-call for his chronic headaches. Work note was given for today. Med/Other Pt SpecificInfo: Prescription(s) given Scripts Ibuprofen 600 Mg [id number] Mg PO Q6H PRN (Pain/Inflammation) #40 TAB Prov:Mine Otero MD 04/04/17 Acetaminophen (Non-Aspirin Pain Relief ES)500 Mg [id number] Mg PO Q6HR PRN (PAIN) # 60 TAB Prov:Mine Otero MD 04/04/17 Disposition: 01 DISCHARGE HOME Condition: Stable Brandon Tan Apr 04, 2017 09:46
[2017-04-04] MEDS ORDERED: SODIUM CHLOR 0.9% 1000 ML INJ 1,000 ML IV ONE (09:51)
[2017-04-04] MEDS ORDERED: diphenhydrAMINE HCL 50 MG/ML VIAL IVP ONE (10:00)
[2017-04-04] MEDS ORDERED: SODIUM CHLORIDE 0.9% FLUSH 10 ML FLUSH IVF PRN (10:00)
[2017-04-04] MEDS ORDERED: PROCHLORPERAZINE INJ 10 MG/2 ML VIAL IVP ONE (10:00)
[2017-04-04] MEDS ORDERED: MORPHINE SULFATE 4 MG/ML INJ IV PUSH ONE (10:00)
[2017-04-04 10:31] VITALS: RESP 15
[2017-04-04 10:36] LABS: AUTOMATED NEUTROPHIL # 4.6 TH/MM3 (1.8-7.7); BASOPHIL # 0.1 TH/MM3 (0-0.2); BASOPHIL % 0.9 % (0.0-2.0); EOSINOPHIL # 0.1 TH/MM3 (0-0.4); EOSINOPHIL % 1.1 % (0.0-4.0); HEMO FLAGS DIFF FINAL; LYMPH % 31.3 % (9.0-44.0); LYMPHOCYTE # 2.5 TH/MM3 (1.0-4.8); MEAN CORPUSCULAR HEMOGLOBIN 26.8 PG (27.0-34.0); MONO % 7.9 % (0.0-8.0); NEUT % 58.8 % (16.0-70.0); PLATELET COUNT 240 TH/MM3 (150-450); RED BLOOD COUNT 5.31 MIL/MM3 (4.50-5.90); RED CELL DISTRIBUTION WIDTH 14.9 % (11.6-17.2); WHITE BLOOD COUNT 7.9 TH/MM3 (4.0-11.0)
[2017-04-04 10:45] LABS: APTT (PATIENT) 26.6 SEC (24.3-30.1); PROTHROMBIN TIME - PATIENT 10.6 SEC (9.8-11.6)
--- NOTE | 2017-04-04 10:49 | RADRPT ---
EXAM DATE/TIME: 04/04/2017 10:40 [facility] COMPARISON: No previous studies available for comparison. INDICATIONS : Headaches for a year now. RADIATION DOSE: 37.69 CTDIvol (mGy) MEDICAL HISTORY : Diabetes mellitus type 2. SURGICAL HISTORY : None. ENCOUNTER: Initial ACUITY: 1 day PAIN SCALE: 2/10 LOCATION: cranial TECHNIQUE: Multiple contiguous axial images were obtained of the head. Using automated exposure control and adj ustment of the mA and/or kV according to patient size, radiation dose was kept as low as reasonably a chievable to obtain optimal diagnostic quality images. DICOM format image data is available electro nically for review and comparison. FINDINGS: CEREBRUM: The ventricles are normal for age. No evidence of midline shift, mass lesion, hemorrhage or acute in farction. No extra-axial fluid collections are seen. POSTERIOR FOSSA: The cerebellum and brainstem are intact. The 4th ventricle is midline. The cerebellopontine angle i s unremarkable. EXTRACRANIAL: The visualized portion of the orbits is intact. SKULL: The calvaria is intact. No evidence of skull fracture. CONCLUSION: No acute disease. Lamonte Gonzáles MD on April 04, 2017 at 10:46 Board Certified Radiologist. This report was verified electronically.
[2017-04-04 11:04] LABS: ALT (GPT) 24 U/L (12-78); ANION GAP 8 MEQ/L (5-15); AST (GOT) 17 U/L (15-37); BICARBONATE 29.1 MEQ/L (21.0-32.0); BLOOD UREA NITROGEN 10 MG/DL (7-18); CHLORIDE 107 MEQ/L (98-107); GLOMERULAR FILTRATION RATE 93 ML/MIN (>89); POTASSIUM 3.5 MEQ/L (3.5-5.1); SODIUM (NA) 144 MEQ/L (136-145)
[2017-04-04 11:05] LABS: ALKALINE PHOSPHATASE 109 U/L (45-117); TOTAL BILIRUBIN ADULT 0.2 MG/DL (0.2-1.0)
[2017-04-04] MEDS ORDERED: IBUP-232 PO (11:34)
[2017-04-04] MEDS ORDERED: NON-500T13 PO (11:34)
== END 2017-04-04 11:58 | disposition home or self-care (01) ==
LOC: NEPD 09:34
DX: R51 Headache (principal); E11.9 Type 2 diabetes mellitus without complications; F17.200 Nicotine dependence, unspecified, uncomplicated
CPT/HCPCS: 70450; 80053; 85025; 85610; 85730; 96361; 96374; 96375; 99285; J0780; J1200; J2270; J7030

== ENCOUNTER 2017-06-30 10:11 | Emergency (ER) | payer OTHER ==
[~2017-06-30 10:11] MED LIST changes: -GLUCKIT15; +IBUP-232 PO; -INSU1MIS15; -LANCETS1 MI1; -METF850T PO; +NON-500T13 PO; -NOVO7030P2 SQ; -NOVORP2 SQ
[2017-06-30 10:13] VITALS: BP 232/128; PULSE 85; RESP 16; TEMP 98.4; O2SAT 98
[2017-06-30] MEDS ORDERED: ONDANSETRON ODT 4 MG TAB PO ONE (12:15)
[2017-06-30] MEDS ORDERED: cloNIDine HCL 0.2 MG TAB PO ONE (12:15)
--- NOTE | 2017-06-30 12:25 | PD ---
HPI Chief Complaint: Headache Time Seen by Provider: 12:02 Travel History International Travel<30 days: No Contact w/Intl Traveler<30days: No Traveled to known affect area: No History of Present Illness HPI This patient complains of headache. He has a bilateral low frontal throbbing headache. He gets these headaches very frequently. Patient is insulin- dependent diabetic but noncompliant. He ran out of his insulin. Sugar was 168 today. No head injury or thunderclap onset or fever. He takes no blood thinners. Has untreated hypertension as well. Blood pressure is very accelerated at 232 systolic on arrival. Symptoms severity is moderate. No alleviating factors. I believe his headache is exacerbated by hypertension PFSH Past Medical History Cardiovascular Problems: No Diabetes: Yes (new onset DM ) Endocrine: Yes Gastrointestinal Disorders: No Genitourinary: No Immune Disorder: No Musculoskeletal: No Neurologic: No Psychiatric: No Reproductive: No Respiratory: No Past Surgical History Other Surgery: No Social History Alcohol Use: Yes (occasion) Tobacco Use: Yes (0.5ppd) Substance Use: Yes (marijuana) Allergies-Medications (Allergen,Severity, Reaction): Coded Allergies: No Known Allergies (Unverified , 11/01/16) Reported Meds & Prescriptions Reported Meds & Active Scripts Active Ibuprofen 600 Mg Tab 600 Mg PO Q6H PRN Non-Aspirin Pain Relief ES (Acetaminophen) 500 Mg Tab 500 Mg PO Q6HR PRN Review of Systems General / Constitutional: No: Fever Eyes: No: Visual changes HENT: Positive: Headaches Cardiovascular: No: Chest Pain or Discomfort Respiratory: No: Shortness of Breath Gastrointestinal: Positive: Nausea, No: Abdominal Pain Genitourinary: No: Dysuria Musculoskeletal: No: Pain Skin: No Rash Neurologic: Positive: Headache, No: Weakness Psychiatric: No: Depression Endocrine: No: Polydipsia Hematologic/Lymphatic: No: Easy Bruising Physical Exam Narrative GENERAL: Well-nourished, well-developed patient in no apparent distress. SKIN: Focused skin assessment reveals no rash and nodules. Skin is Warm and dry. HEAD: Atraumatic. Normocephalic. EYES: Pupils equal and round. No scleral icterus. No injection or drainage. ENT: No nasal bleeding or discharge. Mucous membranes pink and moist. NECK: Trachea midline. No JVD. CARDIOVASCULAR: Regular rate and rhythm. No murmur appreciated. RESPIRATORY: No accessory muscle use. Clear to auscultation. Breath sounds equal bilaterally. GASTROINTESTINAL: Abdomen soft, non-tender, nondistended. Hepatic and splenic margins not palpable. MUSCULOSKELETAL: No obvious deformities. No clubbing. No cyanosis. No edema. NEUROLOGICAL: Awake and alert. No obvious cranial nerve deficits. Motor grossly within normal limits. Normal speech. PSYCHIATRIC: Appropriate mood and affect; insight and judgment seems a bit weak . Data Data Last Documented VS Vital Signs Date Time Temp Pulse Resp B/P (MAP) Pulse Ox O2 Delivery O2 Flow Rate FiO2 06/30/17 13:07 79 18 183/113 (136) 99 Room Air 06/30/17 10:[address] Brain W/O Iv Contrast(Rout) (06/30/17 ) Clonidine (Catapres) (06/30/17 12:15) Ondansetron Odt (Zofran Odt) (06/30/17 12:15) MDM Medical Decision Making Medical Screen Exam Complete: Yes Emergency Medical Condition: Yes Medical Record Reviewed: Yes Differential Diagnosis Differential diagnosis includes migraine, tension headache, cluster headache, meningitis. Narrative Course I have reviewed the patient's electronic medical record. Patient was here in March 2017 for headache and had negative brain CT. Blood pressure is elevated at that visit as well Patient has accelerated hypertension and I gave him a dose of clonidine and will reassess pressure Brain CT is negative Presentation not consistent with subarachnoid hemorrhage Repeat blood pressure is 183 systolic I wrote him one month of lisinopril and advised him to check and record his blood pressure daily and follow up with primary care I wrote him one month of his 70/30 insulin Diagnosis Primary Impression: Headache Qualified Codes: R51 - Headache Additional Impression: Accelerated hypertension Additional Instructions: The patient was advised to follow up with their physician and return if they worsen. Check and record blood pressure daily Check and record blood sugar frequently Med/Other Pt SpecificInfo: Prescription(s) given Scripts Insulin Human Isophane-Regular 70-30 Inj (Novolin 70-30 Inj) 1,000 Unit/10 Ml Vial 10 UNITS SQ BID for Blood Sugar Management for 30 Days, ML 0 Refills Prov: Bharat Tellez MD 06/30/17 Lisinopril (Lisinopril) 20 Mg Tab 20 MG PO DAILY, #30 TAB 0 Refills Prov: Bharat Tellez MD 06/30/17 Disposition: 01 DISCHARGE HOME Condition: Stable Bharat Tellez MD Jun 30, 2017 12:25
[2017-06-30 12:29] VITALS: BP 199/123; PULSE 80; RESP 18; O2SAT 99
--- NOTE | 2017-06-30 12:57 | RADRPT ---
EXAM DATE/TIME: 06/30/2017 12:35 [facility] COMPARISON: CT BRAIN W/O CONTRAST, April 04, 2017, 10:40. INDICATIONS : Headache,frontal area. RADIATION DOSE: 38.66 CTDIvol (mGy) MEDICAL HISTORY : [place] SURGICAL HISTORY : None. ENCOUNTER: Initial ACUITY: 1 day PAIN SCALE: 10/10 LOCATION: cranial TECHNIQUE: Multiple contiguous axial images were obtained of the head. Using automated exposure control and adj ustment of the mA and/or kV according to patient size, radiation dose was kept as low as reasonably a chievable to obtain optimal diagnostic quality images. DICOM format image data is available electro nically for review and comparison. FINDINGS: CEREBRUM: The ventricles are normal for age. No evidence of midline shift, mass lesion, hemorrhage or acute in farction. No extra-axial fluid collections are seen. POSTERIOR FOSSA: The cerebellum and brainstem are intact. The 4th ventricle is midline. The cerebellopontine angle i s unremarkable. EXTRACRANIAL: The visualized portion of the orbits is intact. SKULL: The calvaria is intact. No evidence of skull fracture. CONCLUSION: Normal examination. Sterling Leslie MD on June 30, 2017 at 12:54 Board Certified Radiologist. This report was verified electronically.
[2017-06-30 13:07] VITALS: BP 183/113; PULSE 79; RESP 18; O2SAT 99
[2017-06-30] MEDS ORDERED: NOVO7030P2 SQ (13:21)
[2017-06-30] MEDS ORDERED: LISI-515 PO (13:21)
== END 2017-06-30 14:00 | disposition home or self-care (01) ==
LOC: NEPD 10:11
DX: R51 Headache (principal); I10 Essential (primary) hypertension; E11.9 Type 2 diabetes mellitus without complications; Z72.0 Tobacco use
CPT/HCPCS: 70450